=== PATIENT | male | born 1935 | race Caucasian/White ===

== ENCOUNTER 2018-12-25 22:25 | Inpatient (IN) | payer MEDICARE, BC ==
[~2018-12-25] VITALS: Ht 172.7 cm; Wt 91.0 kg
[~2018-12-25 22:25] MED LIST: BENA5TAB7 PO; BUDE10.2 INH; CHOL10008 PO; CYAN-51 PO; FINA5TAB11 PO; FISH12002 PO; FLO0.4C PO; FURO-149 PO; METO25TA6 PO; OMEP-50 PO; ROSU40TA PO
[2018-12-25 22:54] LABS: BASOPHILS # (AUTO) 0.1 X10'3 (0-0.2); EOSINOPHILS % (AUTO) 0.1 % (0-6); HEMATOCRIT 32.8 % (42.0-52.0); HEMOGLOBIN 10.9 g/dl (14.0-17.9); LYMPHOCYTES # (AUTO) 0.3 X10'3 (1.1-4.8); LYMPHOCYTES % (AUTO) 3.6 % (21-51); MEAN CORPUSCULAR HEMOGLOBIN 30.3 PG (27.0-31.0); MEAN CORPUSCULAR HGB CONC 33.2 g/dL (33.0-36.5); MEAN CORPUSCULAR VOLUME 91.2 FL (78-98); MEAN PLATELET VOLUME 8.1 FL (7.4-10.4); MONOCYTES # (AUTO) 0.2 X10'3 (0-0.9); MONOCYTES % (AUTO) 3.1 % (2-12); NEUTROPHILS % (AUTO) 92.2 % (42-75); PLATELET COUNT 161 X10'3 (140-440); RED BLOOD COUNT 3.59 X10'6 (4.70-6.10); RED CELL DISTRIBUTION WIDTH 14.5 % (11.5-14.5); WHITE BLOOD COUNT 7.5 X10'3 (4.5-11.0)
[2018-12-25 23:08] LABS: ALANINE AMINOTRANSFERASE 16 U/L (12-78); ALBUMIN 2.9 G/DL (3.4-5.0); ALBUMIN/GLOBULIN RATIO 0.7 (1.1-1.5); ALKALINE PHOSPHATASE 76 IU/L (46-116); ANION GAP 8 (8-16); ASPARTATE AMINO TRANSFERASE 10 U/L (10-37); BILIRUBIN,TOTAL 0.2 MG/DL (0.1-1.0); BLOOD UREA NITROGEN 41 MG/DL (7-18); BUN/CREATININE RATIO 15.8 (5.4-32.0); CALCIUM 9.6 MG/DL (8.5-10.1); CHLORIDE 99 MMOL/L (99-107); CREATININE 2.59 MG/DL (0.60-1.10); GLUCOSE 390 MG/DL (70-104); PARTIAL THROMBOPLASTIN TIME 38 SECONDS (22-32); POTASSIUM 5.6 MMOL/L (3.5-5.1); SODIUM 135 MMOL/L (135-145); TOTAL CARBON DIOXIDE 27.6 MMOL/L (24-32); TOTAL PROTEIN 7.3 G/DL (6.4-8.2); eGFR 24 ML/MIN
[2018-12-25] MEDS ORDERED: FURO-150 PO (23:18)
[2018-12-25] MEDS ORDERED: LIDO700A47 TD (23:18)
[2018-12-25] MEDS ORDERED: LIDO700A47 (23:18)
[2018-12-25] MEDS ORDERED: GLIM1TAB3 PO (23:18)
[2018-12-25] MEDS ORDERED: WARF6TAB49 PO (23:18)
[2018-12-25] MEDS ORDERED: ALBU8.5H8 INH (23:18)
[2018-12-25] MEDS ORDERED: METO-384 PO (23:18)
[2018-12-25] MEDS ORDERED: PRED5TAB PO (23:18)
[2018-12-25] MEDS ORDERED: IPRA3AMP31 IH (23:18)
[2018-12-26] VITALS (7 sets, daily range): BP systolic 94–114; BP diastolic 41–78
[2018-12-26] MEDS ORDERED: acetaminophen 325mg tablet PO PRN ×2 (00:30)
[2018-12-26] MEDS ORDERED: magnesium 4gm in 100ml NS 100 ML IV PRN (00:30)
[2018-12-26] MEDS ORDERED: mag hydrox/Alum hydrox/simeth 30ml oral suspension PO PRN (00:30)
[2018-12-26] MEDS ORDERED: potassium Cl 20 mEq SR tablet PO PRN ×2 (00:30)
[2018-12-26] MEDS ORDERED: magnesium hydroxide 30ml (MOM) UD suspension PO PRN (00:30)
[2018-12-26] MEDS ORDERED: furosemide 10 MG/1 ML 10ml inj IV ONE (00:30)
[2018-12-26] MEDS ORDERED: dextrose 50%-water 50ml dispensing syringe IV PRN ×2 (00:30)
[2018-12-26] MEDS ORDERED: dextrose ORAL solution 15 GM/59 ML bottle PO PRN ×2 (00:30)
[2018-12-26] MEDS ORDERED: MESSAGE TO PHARMACY PO ONE (00:30)
[2018-12-26] MEDS ORDERED: magnesium Cl slow-release 64mg tablet PO PRN (00:30)
[2018-12-26] MEDS ORDERED: ondansetron/PF 4mg/2ml inj IV PRN (00:30)
[2018-12-26] MEDS ORDERED: magnesium 2GM in 50ml NS 50 ML IV PRN (00:30)
[2018-12-26] MEDS ORDERED: glucagon, human recombinant 1mg kit SUBCUT PRN (00:30)
[2018-12-26] MEDS ORDERED: potassium CL 10mEq/100ml bag 100 ML IV PRN ×2 (00:30)
--- NOTE | 2018-12-26 01:07 | NUR ---
Received report from Roxana in ER. Patient has not yet arrived to floor, but will be going to room 348A.
[2018-12-26] MEDS ORDERED: insulin regular, human 10 units/0.1 ml syringe IV ONE (01:10)
[2018-12-26] MEDS ORDERED: calcium gluconate inj. 1 GM in normal saline 100ml IV soln 90 ML IV ONE (01:10)
[2018-12-26] MEDS ORDERED: dextrose 50%-water 50ml dispensing syringe IV ONE (01:10)
[2018-12-26] MEDS ORDERED: sodium polystyrene sulfonate 15gm/60ml oral suspension PO ONE (01:10)
--- NOTE | 2018-12-26 06:30 | NUR ---
Patient in room [facility] 348. I have received report from LALA Morris and had the opportunity to ask questions and assume patient care.
--- NOTE | 2018-12-26 06:36 | NUR ---
Problems reprioritized. Patient report given, questions answered & plan of care reviewed with Heather REEVES.
[2018-12-26] MEDS ORDERED: non-formulary drug (Fish Oil/Borage/Flax/Om3,6,9#1 (Omega 3-6-9 1,200 mg Softgel) 1 CAP) PO SCH (08:00)
[2018-12-26] MEDS ORDERED: enoxaparin 30mg/0.3ml syringe SQ SCH (08:00)
[2018-12-26] MEDS: metoprolol succinate 25mg (24-HOUR) SR. Tablet PO SCH (08:00)
[2018-12-26] MEDS ORDERED: furosemide 20 MG/2 ML vial IV SCH (08:00)
[2018-12-26] MEDS: LIDOcaine 5% patch TP SCH (08:00)
[2018-12-26] MEDS: K and/or MAG REPLACEMENT MC SCH (08:00)
[2018-12-26 08:19] LABS: POTASSIUM 4.7 MMOL/L (3.5-5.1)
[2018-12-26] MEDS: ipratropium/albuterol 3ml nebule NEB SCH ×3 (08:59→19:18)
[2018-12-26] MEDS: budesonide 0.5mg/2ml UD nebule IH SCH ×2 (08:59→19:18)
[2018-12-26] MEDS: tamsulosin 0.4mg capsule PO SCH (09:32)
[2018-12-26] MEDS: predniSONE 20 mg tablet PO SCH (09:33)
[2018-12-26] MEDS: pantoprazole 40mg Tablet.DR PO SCH (09:34)
[2018-12-26] MEDS: atorvastatin 20mg tablet PO SCH (09:37)
[2018-12-26] MEDS: finasteride 5mg tablet PO SCH (09:37)
[2018-12-26] MEDS: CefTRIAXone 2gm/D5W 50ml 50 ML IV SCH (10:56)
[2018-12-26] MEDS: albuterol 2.5 MG/3 ML nebule NEB SCH ×2 (12:00→14:55)
--- NOTE | 2018-12-26 13:10 | NUR ---
DM Consult: A1C 8.2. Pt/family seen by RD for written/verbal DM ed w/ RD contact information provided. Pt GLU high 300s on prednisone and admit w/ CHF exacerbation. Pt does report eating more processed foods since easier to cook. RD encouraged attending CDE course as well as healthier food alternatives that are easier to prepare. Encouraged pt to contact RD if further questions. Pt agrees to chopped onions w/ protein tonight; dietary notified. LBM 12/25. PO 100% carb controlled meals meeting needs. Will continue to monitor. Rec: 1. continue carb controlled diet 2. honor pt food preferences 3. wt per rx Addendum: 12/26/18 at [address] Amended: Links added.
--- NOTE | 2018-12-26 15:15 | NUR ---
Tele called and said the the patient was up into the 120's/130's in afib. A set of vitals was taken and Dr. Cortes was paged. BP 102/59 HR of 114. The HR isn't completely accurate on our pulse ox. because of the afib.
[2018-12-26] MEDS ORDERED: metoprolol tartrate 25mg tablet PO ONE (16:00)
--- NOTE | 2018-12-26 16:00 | NUR ---
Tele called again and said that the patients' HR is still elevated; now in the 130's/140's. BP 106/47 HR of [address] Cortes did not call back after the first page. She was paged again after the second call from Tele and 25mg of Metoprolol was ordered. Will continue to monitor the patient.
[2018-12-26] MEDS ORDERED: WARF3TAB56 PO (16:26)
--- NOTE | 2018-12-26 17:02 | NUR ---
Re-checked patients BP after the 25mg of metoprolol and it was 94/56; patients' HR also came down into the 100's (spoke with [employer] Alia to see if it helped the HR at all). I let Dr. Cortes know that his BP was low this am and that he didn't get his 50mg of metoprolol before giving the one time of 25mg for the HR. I also let her know his most recent BP before she ordered it.
--- NOTE | 2018-12-26 18:05 | NUR ---
Problems reprioritized. Patient report given, questions answered & plan of care reviewed with LALA Angeles.
--- NOTE | 2018-12-26 18:10 | NUR ---
Received report from LALA Romero. Patient is awake and alert on 3L NC, in no apparent distress. Call light and items of frequent use within reach. Will continue to monitor.
[2018-12-26] MEDS: insulin Lispro (HumaLOG) vial - multi-dose SQ SCH ×2 (18:38→21:26)
--- NOTE | 2018-12-26 18:57 | NUR ---
patient started on insulin, per pt he had a reaction to it last time where he "got all sweaty." In collaboration with his nurse it was decided that he would get coverage for his nutrition only for now, and we'll recheck at 2100.
[2018-12-26] MEDS: lactobacillus rhamnosus 10,000 MMU CELLS/CAPSULE PO SCH (19:29)
[2018-12-26] MEDS ORDERED: VANCOMYCIN LEVEL IV ONE (21:00)
[2018-12-26] MEDS: insulin glargine (Lantus) pen - multi-dose SQ SCH (21:25)
[2018-12-27] VITALS: BP 105/61
[2018-12-27 05:31] LABS: ABG BASE EXCESS -1.4 mmol/L (-2.0-3.0); ABG HCO3 23.1 mmol/L (22.0-26.0); ABG OXYGEN SATURATION 98.1 % (95-98); ABG PCO2 (T) 38.2 mmHg (35.0-45.0); ABG PH (T) 7.399 (7.350-7.450); ABG PO2 (T) 138.7 mmHg (83-108); ALLEN'S TEST Positive; FCOHb 0.3 % (0.5-1.5); FLOW 10 L/min; FO2Hb 97.8 % (94-100); PATIENT TEMPERATURE 37.2; TOTAL HEMOGLOBIN 11.1 G/dl (14.0-17.9)
[2018-12-27 05:33] LABS: ALBUMIN 2.7 G/DL (3.4-5.0); ANION GAP 6 (8-16); BLOOD UREA NITROGEN 41 MG/DL (7-18); BUN/CREATININE RATIO 18.1 (5.4-32.0); CALCIUM 9.7 MG/DL (8.5-10.1); CHLORIDE 101 MMOL/L (99-107); CREATININE 2.27 MG/DL (0.60-1.10); GLUCOSE 161 MG/DL (70-104); POTASSIUM 4.4 MMOL/L (3.5-5.1); SODIUM 142 MMOL/L (135-145); TOTAL CARBON DIOXIDE 34.9 MMOL/L (24-32); eGFR 28 ML/MIN
[2018-12-27 05:54] LABS: BASOPHILS % (AUTO) 0.2 % (0-1); EOSINOPHILS % (AUTO) 0.5 % (0-6); HEMATOCRIT 29.5 % (42.0-52.0); HEMOGLOBIN 9.8 g/dl (14.0-17.9); LYMPHOCYTES # (AUTO) 0.7 X10'3 (1.1-4.8); LYMPHOCYTES % (AUTO) 9.1 % (21-51); MEAN CORPUSCULAR HEMOGLOBIN 31.4 PG (27.0-31.0); MEAN CORPUSCULAR HGB CONC 33.1 g/dL (33.0-36.5); MEAN PLATELET VOLUME 8.3 FL (7.4-10.4); MONOCYTES # (AUTO) 0.6 X10'3 (0-0.9); MONOCYTES % (AUTO) 8.5 % (2-12); NEUTROPHILS # (AUTO) 5.8 X10'3 (1.8-7.7); NEUTROPHILS % (AUTO) 81.7 % (42-75); PLATELET COUNT 149 X10'3 (140-440); RED CELL DISTRIBUTION WIDTH 14.1 % (11.5-14.5); WHITE BLOOD COUNT 7.1 X10'3 (4.5-11.0)
--- NOTE | 2018-12-27 06:24 | NUR ---
Problems reprioritized. Patient report given, questions answered & plan of care reviewed with LALA Romero.
--- NOTE | 2018-12-27 06:25 | NUR ---
Patient in room [facility] 348. I have received report from LALA Angeles and had the opportunity to ask questions and assume patient care.
[2018-12-27 07:06] VITALS: BP 126/70
[2018-12-27] MEDS: lactobacillus rhamnosus 10,000 MMU CELLS/CAPSULE PO SCH ×2 (07:42→20:32)
[2018-12-27] MEDS: CefTRIAXone 2gm/D5W 50ml 50 ML IV SCH (07:42)
[2018-12-27] MEDS: atorvastatin 20mg tablet PO SCH (07:43)
[2018-12-27] MEDS: tamsulosin 0.4mg capsule PO SCH (07:43)
[2018-12-27] MEDS: predniSONE 20 mg tablet PO SCH (07:43)
[2018-12-27] MEDS: LIDOcaine 5% patch TP SCH (07:44)
[2018-12-27] MEDS: finasteride 5mg tablet PO SCH (07:44)
[2018-12-27] MEDS: pantoprazole 40mg Tablet.DR PO SCH (07:44)
[2018-12-27] MEDS: metoprolol succinate 25mg (24-HOUR) SR. Tablet PO SCH (07:44)
[2018-12-27] MEDS: K and/or MAG REPLACEMENT MC SCH (07:51)
[2018-12-27] MEDS ORDERED: furosemide 20 MG/2 ML vial IV SCH (08:00)
[2018-12-27] MEDS: ipratropium/albuterol 3ml nebule NEB SCH ×3 (08:27→20:24)
[2018-12-27] MEDS: budesonide 0.5mg/2ml UD nebule IH SCH ×2 (08:27→20:24)
--- NOTE | 2018-12-27 10:05 | NUR ---
Did not cover patients sugar. It got to late and he said that he dropped the last time he was here. His sugars are definitely all over the place. He only got covered for his carbs at dinner last night as well, per shift engineer. He will get re-checked at 1200 and I'll see what his sugar does. The patient also said that his sugar dropped the last time he was here. He know's his body and he seems to understand how the hospital runs.
[2018-12-27] MEDS ORDERED: OMEG1CAP2 PO (10:30)
[2018-12-27] MEDS ORDERED: IPRA3AMP9 IH (10:32)
[2018-12-27 11:10] VITALS: BP 120/63
--- NOTE | 2018-12-27 11:10 | NUR ---
Tele called and the patients' HR went up into the 150's in afib. Patient was getting back to bed from being in the shower. His daughter said that he's always short of breath when he showers at home. The patient was otherwise asymptomatic. Vitals were taken. BP was 120/63 HR on pulse ox. was 110 and 96% on 2L. Patient received 50mg of Metoprolol this am. Dr. Sanz was paged.
--- NOTE | 2018-12-27 13:15 | NUR ---
Gave patient 5 units and covered his sugar only instead of 8 units. He was 206 but I didn't cover him this am so I don't want him to bottom out. Depending on his sugar at 1700 I may page the doctor and ask to keep him at a certain level so that he doesn't bottom out. The patient also told me that sometimes he wakes up and his sugar is 75 and sometimes it's 300. So he's unsure why it is all over the place. He takes the Glimepiride at home.
[2018-12-27] MEDS: insulin Lispro (HumaLOG) vial - multi-dose SQ SCH ×2 (13:17→18:40)
--- NOTE | 2018-12-27 13:45 | NUR ---
Tele called again and said that the patients' heart rate was in the 150's. I checked on him and he was up at the bedside voiding. Dr. Sanz was at the nurses station so I let him know. No new orders at this time.
[2018-12-27] MEDS: furosemide 40mg/4ml inj IV SCH (15:12)
[2018-12-27] MEDS ORDERED: metoprolol succinate 25mg (24-HOUR) SR. Tablet PO ONE (16:25)
--- NOTE | 2018-12-27 16:30 | NUR ---
Got another call from Tele. Patients HR up into the 160's. Patient had been standing at the bedside voiding. Paged Dr. Sanz; He ordered a one time order of 50mg of Metoprolol. Patients' BP was charted prior to administration (he was low yesterday).
[2018-12-27 16:45] VITALS: BP 119/64
--- NOTE | 2018-12-27 17:00 | NUR ---
Called tele back; Patients' HR has come down to 104.
[2018-12-27 20:00] VITALS: BP 107/64
[2018-12-27] MEDS: insulin glargine (Lantus) pen - multi-dose SQ SCH (20:42)
[2018-12-27] MEDS ORDERED: warfarin 3mg tablet PO ONE (21:00)
[2018-12-28] VITALS: BP 110/59
[2018-12-28 05:14] LABS: BASOPHILS % (AUTO) 0.2 % (0-1); EOSINOPHILS # (AUTO) 0.1 X10'3 (0-0.9); EOSINOPHILS % (AUTO) 1.1 % (0-6); HEMATOCRIT 32.8 % (42.0-52.0); HEMOGLOBIN 10.8 g/dl (14.0-17.9); MEAN CORPUSCULAR HEMOGLOBIN 29.9 PG (27.0-31.0); MEAN CORPUSCULAR VOLUME 90.5 FL (78-98); MEAN PLATELET VOLUME 7.5 FL (7.4-10.4); MONOCYTES # (AUTO) 0.7 X10'3 (0-0.9); MONOCYTES % (AUTO) 9.1 % (2-12); NEUTROPHILS # (AUTO) 5.6 X10'3 (1.8-7.7); NEUTROPHILS % (AUTO) 76.6 % (42-75); PLATELET COUNT 194 X10'3 (140-440); RED BLOOD COUNT 3.63 X10'6 (4.70-6.10); RED CELL DISTRIBUTION WIDTH 13.8 % (11.5-14.5); WHITE BLOOD COUNT 7.4 X10'3 (4.5-11.0)
[2018-12-28 05:29] LABS: ALBUMIN 2.8 G/DL (3.4-5.0); ANION GAP 5 (8-16); BLOOD UREA NITROGEN 46 MG/DL (7-18); CALCIUM 9.4 MG/DL (8.5-10.1); CHLORIDE 100 MMOL/L (99-107); CREATININE 2.42 MG/DL (0.60-1.10); GLUCOSE 173 MG/DL (70-104); POTASSIUM 4.3 MMOL/L (3.5-5.1); SODIUM 140 MMOL/L (135-145); TOTAL CARBON DIOXIDE 34.9 MMOL/L (24-32); eGFR 26 ML/MIN
--- NOTE | 2018-12-28 06:37 | NUR ---
Problems reprioritized. Patient report given, questions answered & plan of care reviewed with Roxana REEVES.
[2018-12-28 07:07] VITALS: BP 106/55
[2018-12-28] MEDS: ipratropium/albuterol 3ml nebule NEB SCH (07:15)
[2018-12-28] MEDS: budesonide 0.5mg/2ml UD nebule IH SCH (07:15)
[2018-12-28] MEDS: K and/or MAG REPLACEMENT MC SCH (07:48)
[2018-12-28] MEDS: furosemide 40mg/4ml inj IV SCH (07:48)
[2018-12-28] MEDS: CefTRIAXone 2gm/D5W 50ml 50 ML IV SCH (07:48)
[2018-12-28] MEDS: atorvastatin 20mg tablet PO SCH (07:49)
[2018-12-28] MEDS: tamsulosin 0.4mg capsule PO SCH (07:49)
[2018-12-28] MEDS: predniSONE 20 mg tablet PO SCH (07:49)
[2018-12-28] MEDS: finasteride 5mg tablet PO SCH (07:49)
[2018-12-28] MEDS: lactobacillus rhamnosus 10,000 MMU CELLS/CAPSULE PO SCH (07:49)
[2018-12-28] MEDS: pantoprazole 40mg Tablet.DR PO SCH (07:50)
[2018-12-28] MEDS: insulin Lispro (HumaLOG) vial - multi-dose SQ SCH (07:59)
[2018-12-28] MEDS: LIDOcaine 5% patch TP SCH (08:00)
[2018-12-28] MEDS ORDERED: metoprolol succinate 25mg (24-HOUR) SR. Tablet PO SCH (08:00)
[2018-12-28] MEDS ORDERED: non-formulary drug (Warfarin Sodium 1 TAB) PO SCH (08:00)
[2018-12-28 11:09] VITALS: BP 124/71
[2018-12-28] MEDS ORDERED: METO100T7 PO (13:19)
--- NOTE | 2018-12-28 14:32 | NUR ---
Pt discharged home with daughter. Auxillary has taken pt down. IV taken out, tele dc'd. Meds delivered by chris. Pt appropriate for discharge. All belongings taken from room.
== END 2018-12-28 14:32 | disposition home health service (06) | DRG 291 ==
LOC: ER 22:27 → SUR 3N 12-26 01:20 → CMPBEDREQ 12-27 19:34
PROVIDERS: ADMIT Hospitalist; ATTEND Family Medicine
PROC: 5A09357 Assistance with Respiratory Ventilation, Less than 24 Consecutive Hours, Continuous Positive Airway Pressure (ICD-10-PCS; principal; 2018-12-25)
DX: I13.0 Hypertensive heart and chronic kidney disease with heart failure and stage 1 through stage 4 chronic kidney disease, or unspecified chronic kidney disease (principal); N17.0 Acute kidney failure with tubular necrosis; I50.23 Acute on chronic systolic (congestive) heart failure; N18.4 Chronic kidney disease, stage 4 (severe); I48.91 Unspecified atrial fibrillation; E87.5 Hyperkalemia; D64.9 Anemia, unspecified; E11.22 Type 2 diabetes mellitus with diabetic chronic kidney disease; R00.0 Tachycardia, unspecified; E78.5 Hyperlipidemia, unspecified; J44.9 Chronic obstructive pulmonary disease, unspecified; N40.0 Benign prostatic hyperplasia without lower urinary tract symptoms; R09.02 Hypoxemia; Z79.01 Long term (current) use of anticoagulants; Z86.73 Personal history of transient ischemic attack (TIA), and cerebral infarction without residual deficits; Z99.81 Dependence on supplemental oxygen; Z79.899 Other long term (current) drug therapy
CPT/HCPCS: 36415; 36600; 71045; 80048; 80053; 82803; 82948; 83036; 83735; 83880; 84132; 84484; 85018; 85025; 85610; 85730; 87081; 93005; 93306; 94640; 94760; 96374; 99285; G0378; J0610; J0696; J1650; J1815; J1940; J7512; J7626

== ENCOUNTER 2019-01-04 15:20 | Inpatient (IN) | payer MEDICARE, BC ==
[~2019-01-04] VITALS: Ht 182.9 cm; Wt 83.2 kg
[~2019-01-04 15:20] MED LIST changes: -BENA5TAB7 PO; -BUDE10.2 INH; -CHOL10008 PO; -CYAN-51 PO; -FISH12002 PO; -FURO-149 PO; +IPRA3AMP9 IH; +LIDO700A47 TD; +METO100T7 PO; -METO25TA6 PO; +OMEG1CAP2 PO; +PRED5TAB PO; +WARF3TAB56 PO; +WARF6TAB49 PO
[2019-01-04 15:55] LABS: BASOPHILS % (AUTO) 0.3 % (0-1); EOSINOPHILS % (AUTO) 0.4 % (0-6); HEMATOCRIT 36.1 % (42.0-52.0); LYMPHOCYTES # (AUTO) 0.3 X10'3 (1.1-4.8); LYMPHOCYTES % (AUTO) 3.3 % (21-51); MEAN CORPUSCULAR HEMOGLOBIN 29.9 PG (27.0-31.0); MEAN CORPUSCULAR HGB CONC 33.2 g/dL (33.0-36.5); MEAN CORPUSCULAR VOLUME 90.1 FL (78-98); MEAN PLATELET VOLUME 7.7 FL (7.4-10.4); MONOCYTES # (AUTO) 0.3 X10'3 (0-0.9); MONOCYTES % (AUTO) 2.6 % (2-12); NEUTROPHILS # (AUTO) 9.6 X10'3 (1.8-7.7); NEUTROPHILS % (AUTO) 93.4 % (42-75); PLATELET COUNT 210 X10'3 (140-440); RED CELL DISTRIBUTION WIDTH 14.1 % (11.5-14.5); WHITE BLOOD COUNT 10.2 X10'3 (4.5-11.0)
[2019-01-04] MEDS ORDERED: furosemide 10 MG/1 ML 10ml inj IV ONE (16:20)
[2019-01-04 16:54] LABS: ALANINE AMINOTRANSFERASE 22 U/L (12-78); ALBUMIN 3.1 G/DL (3.4-5.0); ALBUMIN/GLOBULIN RATIO 0.7 (1.1-1.5); ALKALINE PHOSPHATASE 65 IU/L (46-116); ANION GAP 7 (8-16); ASPARTATE AMINO TRANSFERASE 13 U/L (10-37); BILIRUBIN,TOTAL 0.5 MG/DL (0.1-1.0); BLOOD UREA NITROGEN 46 MG/DL (7-18); BUN/CREATININE RATIO 20.4 (5.4-32.0); CALCIUM 9.4 MG/DL (8.5-10.1); CHLORIDE 95 MMOL/L (99-107); CREATININE 2.25 MG/DL (0.60-1.10); GLUCOSE 320 MG/DL (70-104); POTASSIUM 5.5 MMOL/L (3.5-5.1); SODIUM 132 MMOL/L (135-145); TOTAL CARBON DIOXIDE 30.5 MMOL/L (24-32); TOTAL PROTEIN 7.3 G/DL (6.4-8.2); eGFR 28 ML/MIN
[2019-01-04 16:59] LABS: PARTIAL THROMBOPLASTIN TIME 32 SECONDS (22-32)
[2019-01-04] MEDS ORDERED: mag hydrox/Alum hydrox/simeth 30ml oral suspension PO PRN (17:25)
[2019-01-04] MEDS ORDERED: magnesium hydroxide 30ml (MOM) UD suspension PO PRN (17:25)
[2019-01-04] MEDS ORDERED: acetaminophen 325mg tablet PO PRN (17:25)
[2019-01-04] MEDS ORDERED: metoprolol tartrate 50mg tablet PO ONE (17:25)
[2019-01-04] MEDS ORDERED: ondansetron/PF 4mg/2ml inj IV PRN (17:25)
[2019-01-04] MEDS ORDERED: diltiazem 5mg/ml 5ml inj. IV ONE (17:25)
--- NOTE | 2019-01-04 17:25 | NUR ---
PA AWARE OF PT'S FLUCTUATING HR.
[2019-01-04] MEDS ORDERED: sodium polystyrene sulfonate 15gm/60ml oral suspension PO ONE (17:55)
[2019-01-04] MEDS ORDERED: BENA5TAB6 PO (18:09)
[2019-01-04] MEDS ORDERED: GLIM1TAB3 PO (18:09)
[2019-01-04] MEDS ORDERED: FURO-150 PO (18:09)
[2019-01-04] MEDS ORDERED: BUDE10.2 INH (18:09)
[2019-01-04] MEDS ORDERED: CYAN500T46 PO (18:13)
[2019-01-04] MEDS ORDERED: ASPI-1265 PO (18:13)
[2019-01-04] MEDS ORDERED: ALBU8.5H8 IH (18:13)
--- NOTE | 2019-01-04 18:19 | NUR ---
CALLED TO GIVE REPORT TO GEENA. NURSES WERE CURRENTLY RECIEVING REPORT.
[2019-01-04] MEDS ORDERED: albuterol 2.5 MG/3 ML nebule NEB PRN (18:25)
--- NOTE | 2019-01-04 18:35 | NUR ---
Awaiting arrival of patient from the ER. I have received report from Abel REEVES and had the opportunity to ask questions and assume patient care.
--- NOTE | 2019-01-04 18:40 | NUR ---
Patient arrived to the PCU unit at this time. He is alert and oriented and able to make his needs known. He was able to ambulate from the gurney to the wheelchair independently. is at bedside. He is currently on 2 liters oxygen nasal cannula. He denies any pain. Vitals stable. Patient placed on telemetry monitoring. Ordered dinner tray for patient. He was showed how to use the call light system. All safety precautions in place. Will continue to monitor. Addendum: 01/04/19 at 2 by Sandra Knight RN was daughter at bedside, not .
[2019-01-04 18:50] VITALS: BP 146/84
[2019-01-04 19:00] VITALS: BP 168/76
[2019-01-04] MEDS ORDERED: ipratropium/albuterol 3ml nebule NEB SCH (19:00)
[2019-01-04] MEDS: furosemide 40mg/4ml inj IV SCH (19:56)
[2019-01-04] MEDS: omega-3 acid ethyl esters 1GM capsule PO SCH (20:01)
[2019-01-04] MEDS: tamsulosin 0.4mg capsule PO SCH (20:02)
[2019-01-04] MEDS: atorvastatin 20mg tablet PO SCH (20:03)
[2019-01-04] MEDS ORDERED: MESSAGE TO PHARMACY PO ONE (20:30)
[2019-01-04] MEDS ORDERED: glucagon, human recombinant 1mg kit SUBCUT PRN (20:30)
[2019-01-04] MEDS ORDERED: dextrose 50%-water 50ml dispensing syringe IV PRN ×2 (20:30)
[2019-01-04] MEDS ORDERED: dextrose ORAL solution 15 GM/59 ML bottle PO PRN ×2 (20:30)
--- NOTE | 2019-01-04 20:51 | NUR ---
Call made to Dr. Zamora regarding patient's history of diabetes and got the hyperglycemic protocol ordered.
[2019-01-04] MEDS ORDERED: warfarin 3mg tablet PO ONE (21:00)
[2019-01-04] MEDS: insulin glargine (Lantus) pen - multi-dose SQ SCH (21:02)
[2019-01-04] MEDS: insulin Lispro (HumaLOG) vial - multi-dose SQ SCH (21:04)
[2019-01-04] MEDS: albuterol 2.5 MG/3 ML nebule NEB SCH (21:26)
[2019-01-04] MEDS: budesonide 0.5mg/2ml UD nebule IH SCH (21:26)
[2019-01-04 23:00] VITALS: BP_SYST 101; BP_SYST 87; BP_DIAS 53; BP_DIAS 64
[2019-01-05] VITALS (7 sets, daily range): BP systolic 85–130; BP diastolic 54–82
[2019-01-05] MEDS: albuterol 2.5 MG/3 ML nebule NEB SCH ×4 (02:11→19:58)
[2019-01-05 03:53] LABS: BASOPHILS % (AUTO) 0.1 % (0-1); EOSINOPHILS # (AUTO) 0.1 X10'3 (0-0.9); EOSINOPHILS % (AUTO) 0.8 % (0-6); HEMATOCRIT 35.7 % (42.0-52.0); HEMOGLOBIN 11.9 g/dl (14.0-17.9); LYMPHOCYTES # (AUTO) 0.7 X10'3 (1.1-4.8); LYMPHOCYTES % (AUTO) 7.4 % (21-51); MEAN CORPUSCULAR HEMOGLOBIN 30.2 PG (27.0-31.0); MEAN CORPUSCULAR HGB CONC 33.4 g/dL (33.0-36.5); MEAN CORPUSCULAR VOLUME 90.6 FL (78-98); MEAN PLATELET VOLUME 7.7 FL (7.4-10.4); MONOCYTES # (AUTO) 0.8 X10'3 (0-0.9); MONOCYTES % (AUTO) 8.1 % (2-12); NEUTROPHILS % (AUTO) 83.6 % (42-75); PLATELET COUNT 215 X10'3 (140-440); RED BLOOD COUNT 3.94 X10'6 (4.70-6.10); RED CELL DISTRIBUTION WIDTH 14.1 % (11.5-14.5); WHITE BLOOD COUNT 9.5 X10'3 (4.5-11.0)
[2019-01-05 04:06] LABS: ANION GAP 6 (8-16); BLOOD UREA NITROGEN 50 MG/DL (7-18); CALCIUM 9.6 MG/DL (8.5-10.1); CHLORIDE 97 MMOL/L (99-107); CREATININE 2.27 MG/DL (0.60-1.10); GLUCOSE 205 MG/DL (70-104); POTASSIUM 4.1 MMOL/L (3.5-5.1); SODIUM 136 MMOL/L (135-145); TOTAL CARBON DIOXIDE 33.4 MMOL/L (24-32); eGFR 28 ML/MIN
--- NOTE | 2019-01-05 05:49 | NUR ---
[facility] documentation: I have reviewed and agree with all interventions, assessments performed and documented by Nga REEVES. [facility] Medication Administration: For this medication-pass time frame, all medication were reviewed, dispensed, administered and documented per hospital policy by Nga REEVES.
--- NOTE | 2019-01-05 06:20 | NUR ---
Problems reprioritized. Patient report given, questions answered & plan of care reviewed with Lore REEVES.
--- NOTE | 2019-01-05 06:29 | NUR ---
Patient in room PCU 3025 B. I have received report from Sandra REEVES and had the opportunity to ask questions and assume patient care.
[2019-01-05] MEDS: budesonide 0.5mg/2ml UD nebule IH SCH ×2 (07:09→19:58)
[2019-01-05] MEDS: furosemide 40mg/4ml inj IV SCH ×2 (07:41→20:43)
[2019-01-05] MEDS: predniSONE 20 mg tablet PO SCH (07:41)
[2019-01-05] MEDS: aspirin 81mg tab.chew PO SCH (07:42)
[2019-01-05] MEDS: pantoprazole 40mg Tablet.DR PO SCH (07:42)
[2019-01-05] MEDS: cyanocobalamin 500mcg tablet PO SCH (07:42)
[2019-01-05] MEDS: omega-3 acid ethyl esters 1GM capsule PO SCH ×2 (07:42→20:44)
[2019-01-05] MEDS: lisinopril 10 MG tablet PO SCH (07:44)
[2019-01-05] MEDS: finasteride 5mg tablet PO SCH (07:56)
[2019-01-05] MEDS ORDERED: metoprolol succinate 25mg (24-HOUR) SR. Tablet PO SCH ×2 (08:00)
[2019-01-05] MEDS: LIDOcaine 5% patch TP SCH (08:00)
[2019-01-05] MEDS: insulin Lispro (HumaLOG) vial - multi-dose SQ SCH ×4 (08:06→21:40)
--- NOTE | 2019-01-05 09:33 | NUR ---
DM consult: Pt with A1c 8.2 recently admitted and seen by RD 12/26 where he was provided with written and verbal DM ed with referral to outpatient DM class and RD contact information. No further education warranted at this time. Pt admit with acute exacerbation of CHF, atrial fibrillation with RVR, acute on chronic respiratory failure with hypoxia, and hyperkalemia. Pt currently with a 1.2L fluid restriction on heart healthy CHO controlled diet, pending documentation of PO intake however pt with 75-100% PO intake at last visit. LBM 01/04. No edema or wounds. No nutrition diagnosis at this time. Will continue to follow. Recommendations: 1) Continue with heart healthy CHO controlled diet with fluid restriction per MD 2) Routine bowel care 3) Wt per rx Addendum: 01/05/19 at [address] Amended: Links added.
--- NOTE | 2019-01-05 15:37 | NUR ---
Paged Dr Dalton regarding code status. PAGER ID: [phone] MESSAGE: Re: Dorian Oro [id number]. Can you please change code status to DNR. Thank you. Zaina [phone]
--- NOTE | 2019-01-05 18:30 | NUR ---
Problems reprioritized. Patient report given, questions answered & plan of care reviewed with Alessandra REEVES. Patient stable at transfer of care.
[2019-01-05] MEDS: atorvastatin 20mg tablet PO SCH (20:44)
[2019-01-05] MEDS: tamsulosin 0.4mg capsule PO SCH (20:44)
[2019-01-05] MEDS ORDERED: warfarin 4mg tablet PO ONE (21:00)
[2019-01-05] MEDS: insulin glargine (Lantus) pen - multi-dose SQ SCH (21:42)
[2019-01-06] MEDS: albuterol 2.5 MG/3 ML nebule NEB SCH ×4 (02:10→20:30)
[2019-01-06 03:00] VITALS: BP 83/82
[2019-01-06 04:55] LABS: BASOPHILS % (AUTO) 0.2 % (0-1); EOSINOPHILS # (AUTO) 0.1 X10'3 (0-0.9); HEMATOCRIT 35.5 % (42.0-52.0); LYMPHOCYTES # (AUTO) 0.9 X10'3 (1.1-4.8); LYMPHOCYTES % (AUTO) 8.2 % (21-51); MEAN CORPUSCULAR HEMOGLOBIN 30.3 PG (27.0-31.0); MEAN CORPUSCULAR HGB CONC 33.7 g/dL (33.0-36.5); MEAN CORPUSCULAR VOLUME 90.1 FL (78-98); MEAN PLATELET VOLUME 7.7 FL (7.4-10.4); MONOCYTES # (AUTO) 0.9 X10'3 (0-0.9); MONOCYTES % (AUTO) 8.7 % (2-12); NEUTROPHILS # (AUTO) 8.7 X10'3 (1.8-7.7); NEUTROPHILS % (AUTO) 81.9 % (42-75); PLATELET COUNT 217 X10'3 (140-440); RED BLOOD COUNT 3.94 X10'6 (4.70-6.10); RED CELL DISTRIBUTION WIDTH 14.3 % (11.5-14.5); WHITE BLOOD COUNT 10.6 X10'3 (4.5-11.0)
[2019-01-06 05:05] LABS: ALBUMIN 2.9 G/DL (3.4-5.0); ANION GAP 8 (8-16); BLOOD UREA NITROGEN 69 MG/DL (7-18); BUN/CREATININE RATIO 23.9 (5.4-32.0); CALCIUM 9.5 MG/DL (8.5-10.1); CHLORIDE 97 MMOL/L (99-107); CREATININE 2.89 MG/DL (0.60-1.10); GLUCOSE 125 MG/DL (70-104); POTASSIUM 3.4 MMOL/L (3.5-5.1); SODIUM 139 MMOL/L (135-145); TOTAL CARBON DIOXIDE 34.1 MMOL/L (24-32); eGFR 21 ML/MIN
--- NOTE | 2019-01-06 06:34 | NUR ---
Patient in room PCU 3025b. I have received report from LALA Aparicio and had the opportunity to ask questions and assume patient care. Pt resting comfortably at this time. All needs met.
--- NOTE | 2019-01-06 06:34 | NUR ---
Patient in room PCU 3025. I have received report from Alessandra REEVES and had the opportunity to ask questions and assume patient care. Patient awake in bed with no complaints at this time. All immediate needs met.
[2019-01-06 07:00] VITALS: BP 89/44
[2019-01-06] MEDS: lisinopril 10 MG tablet PO SCH (08:00)
[2019-01-06] MEDS: LIDOcaine 5% patch TP SCH (08:00)
[2019-01-06] MEDS: insulin Lispro (HumaLOG) vial - multi-dose SQ SCH ×4 (09:23→21:13)
[2019-01-06] MEDS: omega-3 acid ethyl esters 1GM capsule PO SCH ×2 (09:23→19:34)
[2019-01-06] MEDS: cyanocobalamin 500mcg tablet PO SCH (09:24)
[2019-01-06] MEDS: finasteride 5mg tablet PO SCH (09:24)
[2019-01-06] MEDS: pantoprazole 40mg Tablet.DR PO SCH (09:24)
[2019-01-06] MEDS: predniSONE 20 mg tablet PO SCH (09:24)
[2019-01-06] MEDS: aspirin 81mg tab.chew PO SCH (09:24)
[2019-01-06] MEDS: tamsulosin 0.4mg capsule PO SCH (09:24)
[2019-01-06] MEDS: budesonide 0.5mg/2ml UD nebule IH SCH ×2 (09:44→20:30)
--- NOTE | 2019-01-06 09:50 | NUR ---
New order from Dr. Dalton: Discontinue 40 mg IV lasix 2000.
[2019-01-06] MEDS ORDERED: furosemide 40mg/4ml inj IV SCH (10:00)
--- NOTE | 2019-01-06 10:41 | NUR ---
Paged Dr. Dalton: PAGER ID: [phone] MESSAGE: RE: Dorian Oro [id number]. FYI: Patient BP after ambulation 84/60. Lore [phone]
[2019-01-06 11:00] VITALS: BP 76/43
--- NOTE | 2019-01-06 11:31 | NUR ---
Paged Dr. Dalton: PAGER ID: [phone] MESSAGE: RE: [place] Oromond [id number]. Patient complaining of dizziness/lightheadedness while laying in bed. Manual BP 84/56. HR 90's. Have not given metropolol or Lasix this am. Please advise of any new orders. Thank you. Lore [phone]
--- NOTE | 2019-01-06 12:22 | NUR ---
page sent to Dr. Dalton PAGER ID: [phone] MESSAGE: Re: [phone] Dorian Oro. Pt states he felt dizzy sitting at edge of bed and fell back onto bed. BP 102/68 HR 105. Also K level 3.4, would you like to replace? Thank you, Elise griffin [phone]
[2019-01-06] MEDS ORDERED: potassium CL 10mEq/100ml bag 100 ML IV PRN ×2 (12:25)
[2019-01-06] MEDS ORDERED: potassium Cl 20 mEq SR tablet PO PRN (12:25)
[2019-01-06] MEDS: K and/or MAG REPLACEMENT MC SCH (12:25)
[2019-01-06] MEDS: potassium Cl 20 mEq SR tablet PO PRN ×3 (13:13→22:00)
[2019-01-06] MEDS ORDERED: normal saline 1000ml 1,000 ML IV ONE (13:45)
[2019-01-06] MEDS: metoprolol succinate 25mg (24-HOUR) SR. Tablet PO SCH (14:01)
[2019-01-06 15:00] VITALS: BP 95/54
[2019-01-06 18:00] VITALS: BP 91/56
--- NOTE | 2019-01-06 18:00 | NUR ---
Patient in room PCU 3025. I have received report from Lore RN, Elise RN and had the opportunity to ask questions and assume patient care.
--- NOTE | 2019-01-06 18:26 | NUR ---
[facility] documentation: I have reviewed and agree with all interventions, assessments performed and documented by LALA Olivares. [facility] Medication Administration: For this medication-pass time frame, all medication were reviewed, dispensed, administered and documented per hospital policy by LALA Olivares.
--- NOTE | 2019-01-06 18:26 | NUR ---
Problems reprioritized. Patient report given, questions answered & plan of care reviewed with LALA Cano.
--- NOTE | 2019-01-06 18:27 | NUR ---
Problems reprioritized. Patient report given, questions answered & plan of care reviewed with Marci REEVES. Patient stable at transfer of care.
[2019-01-06] MEDS ORDERED: warfarin 5mg tablet PO ONE (21:00)
[2019-01-06] MEDS: atorvastatin 20mg tablet PO SCH (21:06)
[2019-01-06] MEDS: insulin glargine (Lantus) pen - multi-dose SQ SCH (21:11)
[2019-01-06 22:00] VITALS: BP 101/56
[2019-01-07 02:00] VITALS: BP 101/58
[2019-01-07] MEDS: albuterol 2.5 MG/3 ML nebule NEB SCH ×2 (03:10→07:32)
--- NOTE | 2019-01-07 05:10 | NUR ---
Patient has ambulated to the bathroom while awake and has slept well all night. Nasal cannula oxygen was kept at 1L all shift. Uses call smith appropriately. Will continue to monitor.
[2019-01-07 06:00] VITALS: BP 93/59
--- NOTE | 2019-01-07 06:05 | NUR ---
Patient in room PCU 3025. I have received report from LALA Abraham and had the opportunity to ask questions and assume patient care.
--- NOTE | 2019-01-07 06:19 | NUR ---
Problems reprioritized. Patient report given, questions answered & plan of care reviewed with Cherry REEVES.
[2019-01-07 06:46] LABS: ALBUMIN 2.8 G/DL (3.4-5.0); ANION GAP 8 (8-16); BLOOD UREA NITROGEN 79 MG/DL (7-18); BUN/CREATININE RATIO 27.1 (5.4-32.0); CALCIUM 9.5 MG/DL (8.5-10.1); CHLORIDE 98 MMOL/L (99-107); CREATININE 2.91 MG/DL (0.60-1.10); GLUCOSE 99 MG/DL (70-104); POTASSIUM 4.5 MMOL/L (3.5-5.1); SODIUM 138 MMOL/L (135-145); TOTAL CARBON DIOXIDE 31.9 MMOL/L (24-32); eGFR 21 ML/MIN
[2019-01-07 07:03] LABS: BASOPHILS % (AUTO) 0.1 % (0-1); EOSINOPHILS # (AUTO) 0.1 X10'3 (0-0.9); EOSINOPHILS % (AUTO) 0.9 % (0-6); HEMATOCRIT 34.5 % (42.0-52.0); HEMOGLOBIN 11.8 g/dl (14.0-17.9); LYMPHOCYTES # (AUTO) 0.8 X10'3 (1.1-4.8); LYMPHOCYTES % (AUTO) 7.4 % (21-51); MEAN CORPUSCULAR HEMOGLOBIN 32.1 PG (27.0-31.0); MEAN CORPUSCULAR HGB CONC 34.1 g/dL (33.0-36.5); MEAN CORPUSCULAR VOLUME 94.3 FL (78-98); MEAN PLATELET VOLUME 8.2 FL (7.4-10.4); MONOCYTES # (AUTO) 0.9 X10'3 (0-0.9); MONOCYTES % (AUTO) 8.6 % (2-12); NEUTROPHILS # (AUTO) 8.7 X10'3 (1.8-7.7); PLATELET COUNT 214 X10'3 (140-440); RED BLOOD COUNT 3.66 X10'6 (4.70-6.10); RED CELL DISTRIBUTION WIDTH 14.1 % (11.5-14.5); WHITE BLOOD COUNT 10.5 X10'3 (4.5-11.0)
[2019-01-07] MEDS: budesonide 0.5mg/2ml UD nebule IH SCH (07:32)
[2019-01-07] MEDS: aspirin 81mg tab.chew PO SCH (07:32)
[2019-01-07] MEDS: finasteride 5mg tablet PO SCH (07:32)
[2019-01-07] MEDS: pantoprazole 40mg Tablet.DR PO SCH (07:32)
[2019-01-07] MEDS: metoprolol succinate 25mg (24-HOUR) SR. Tablet PO SCH (07:32)
[2019-01-07] MEDS: omega-3 acid ethyl esters 1GM capsule PO SCH (07:32)
[2019-01-07] MEDS: predniSONE 20 mg tablet PO SCH (07:32)
[2019-01-07] MEDS: lisinopril 10 MG tablet PO SCH (07:33)
[2019-01-07] MEDS: cyanocobalamin 500mcg tablet PO SCH (07:33)
[2019-01-07] MEDS: LIDOcaine 5% patch TP SCH (07:37)
[2019-01-07] MEDS: K and/or MAG REPLACEMENT MC SCH (08:00)
[2019-01-07] MEDS: insulin Lispro (HumaLOG) vial - multi-dose SQ SCH ×2 (08:58→12:57)
[2019-01-07] MEDS ORDERED: METO-395 PO (10:15)
[2019-01-07 11:00] VITALS: BP 113/59
--- NOTE | 2019-01-07 13:15 | NUR ---
Reported off to LALA Linda for lunch break. Given paperwork for patient's discharge.
--- NOTE | 2019-01-07 13:20 | NUR ---
Patient getting dressed to go home and HR up to 150's. Patient states he is going home no matter what. Message to Dr. Sha Oro [id number] - Just ready to discharge him and HR is 130's to 150's. Asymptomatic. I wanted to let you know before I let him go out the door. He states he will not stay here any longer, is going home. Cherry [facility] ext [phone]
[2019-01-07] MEDS ORDERED: warfarin 5mg tablet PO ONE (21:00)
== END 2019-01-07 13:38 | disposition home health service (06) | DRG 189 ==
LOC: ER 15:21 → PCU 3S 18:37
PROVIDERS: ADMIT Family Medicine; ATTEND Family Medicine
PROC: 5A09357 Assistance with Respiratory Ventilation, Less than 24 Consecutive Hours, Continuous Positive Airway Pressure (ICD-10-PCS; principal; 2019-01-04)
DX: J96.21 Acute and chronic respiratory failure with hypoxia (principal); I50.33 Acute on chronic diastolic (congestive) heart failure; J44.1 Chronic obstructive pulmonary disease with (acute) exacerbation; I13.0 Hypertensive heart and chronic kidney disease with heart failure and stage 1 through stage 4 chronic kidney disease, or unspecified chronic kidney disease; N18.4 Chronic kidney disease, stage 4 (severe); E11.22 Type 2 diabetes mellitus with diabetic chronic kidney disease; E78.5 Hyperlipidemia, unspecified; E87.5 Hyperkalemia; I48.2 Chronic atrial fibrillation; N40.0 Benign prostatic hyperplasia without lower urinary tract symptoms; Z77.090 Contact with and (suspected) exposure to asbestos; I95.9 Hypotension, unspecified; E11.51 Type 2 diabetes mellitus with diabetic peripheral angiopathy without gangrene; Z66 Do not resuscitate; I25.10 Atherosclerotic heart disease of native coronary artery without angina pectoris; Z95.1 Presence of aortocoronary bypass graft; Z79.82 Long term (current) use of aspirin; Z86.73 Personal history of transient ischemic attack (TIA), and cerebral infarction without residual deficits; Z79.84 Long term (current) use of oral hypoglycemic drugs; Z79.01 Long term (current) use of anticoagulants
CPT/HCPCS: 36415; 71045; 80048; 80053; 82948; 83880; 84484; 85025; 85610; 85730; 87081; 93005; 94640; 94760; 96374; 96375; 99285; G0378; J1815; J1940; J3490; J7030; J7512; J7626